=== PATIENT | male | born 1970 | race Two or more races ===

== ENCOUNTER 2024-04-14 08:20 | Day surgery (SDC) | payer MEDICARE, MEDICAID, SELFPAY ==
[2024-04-13 12:05] VITALS: BMI 30.7
[2024-04-14] VITALS (7 sets, daily range): BP systolic 109–126; BP diastolic 66–71; PULSE 60–91; RESP 12–18; TEMP 36.3–36.5; O2SAT 96–100; BMI 30.9
[2024-04-14] MEDS: SODIUM CHLORIDE 0.9% 500 ML 500 ML 20 ML IV (10:20)
[2024-04-14] MEDS: DiphenhydrAMINE INJ 50 MG/ML VIAL 25 MG IV (10:21)
[2024-04-14] MEDS: fentaNYL CIT INJ 50 mCg/ML AMP 2ML (ASD USE ONLY) IV (10:22)
[2024-04-14] MEDS: MIDAZOLAM INJ 1 MG/ML VIAL 2 ML (ASD USE ONLY) 2 MG IV (10:23)
[2024-04-14] MEDS: ONDANSETRON INJ 2 MG/ML INJ 2 ML 4 MG IV (10:27)
== END 2024-04-14 11:25 | disposition home or self-care (01) ==
PROVIDERS: PCP Family Medicine; Referring Provider Specialist; Visit Provider Specialist
PROC: (CPT 43239; principal; 2024-04-14 09:30)
DX: I85.01 Esophageal varices with bleeding (principal); K74.60 Unspecified cirrhosis of liver; K29.71 Gastritis, unspecified, with bleeding
CPT/HCPCS: 43235; J1200; J2250; J2405; J3010; J7040

== ENCOUNTER 2024-04-20 05:05 | Emergency (ER) | payer MEDICARE, MEDICAID, SELFPAY ==
[2024-04-20 05:06] VITALS: BMI 30.6
[2024-04-20 05:13] VITALS: BP 110/71; PULSE 70; RESP 18; TEMP 36.8; O2SAT 98
--- NOTE | 2024-04-20 05:21 | XR_ITS ---
Examination: Abdomen sonogram, complete Date and time of exam: April 20, 2024 0742 hours INDICATIONS: Right upper abdominal pain beginning 4 days ago, cholecystectomy 1 year ago. Technique: Multiple real-time grayscale transabdominal sonographic images of the abdomen have been obtained. Findings: Absent gallbladder Common bile duct 0.4 cm Pancreas aorta obscured by bowel gas Liver 12.3 cm nodular contour no focal liver lesions Normal hepatopedal portal venous flow Patent IVC Right kidney 7.6 x 6.1 x 6.2 cm renal cortex 1.8 cm Mild right hydronephrosis Left kidney 11.0 x 5.6 x 4.8 cm in the cortex 1.7 cm Moderate bilateral renal parenchymal scar formation Splenomegaly 19.7 cm IMPRESSION: Cirrhosis Prominent splenomegaly Mild right hydronephrosis Moderate bilateral renal parenchymal scar formation
--- NOTE | 2024-04-20 05:22 | PD.EDRME ---
Rapid Medical Screening Exam RME Arrival date/time: 04/20/24 05:05 54-year-old male past medical history of cholecystectomy and liver cirrhosis presents emergency department complaining of abdominal pain and bruising. Chief Complaint: Abdominal Pain Vital signs: Vital Signs Temperature 98.3 F 04/20/24 05:13 Pulse Rate 70 04/20/24 05:13 Respiratory Rate 18 04/20/24 05:13 Blood Pressure 110/71 04/20/24 05:13 Pulse Oximetry (%) 98 04/20/24 05:13 Vital signs reviewed by provider: Yes
[2024-04-20 06:03] LABS: Basophils % (Auto) 0 % (0-2.5); Eosinophils # (Auto) 0.2 Thou/mm3 (0.0-0.5); Eosinophils % (Auto) 3 % (0-10); Hematocrit 30.1 % (41.0-53.0); Hemoglobin 10.5 g/dL (13.5-16.0); Immature Granulocytes % (Auto) 0 % (0-0); Immature Granulocytes Auto 0.02 Thou/mm3 (0.00-0.00); Lymphocytes # (Auto) 0.6 Thou/mm3 (1.0-4.8); Lymphocytes % (Auto) 13 % (10-50); Mean Corpuscular HGB Conc 34.9 g/dl (31.0-37.0); Mean Corpuscular Hemoglobin 29.9 pg (25.0-35.0); Mean Corpuscular Volume 86 fL (80-100); Monocytes # (Auto) 0.6 Thou/mm3 (0.0-0.8); Monocytes % (Auto) 12 % (0-12); Neutrophils # (Auto) 3.3 Thou/mm3 (1.8-7.7); Neutrophils % (Auto) 71 % (37-80); Nucleated Red Blood Cell % 0 /100 WBC (0); RDW Standard Deviation 46.6 fL (35.1-43.9); Red Blood Count 3.51 Miln/mm3 (4.50-5.90); White Blood Count 4.6 Thou/mm3 (3.8-10.6)
[2024-04-20 06:16] LABS: Platelet Count 35 Thou/mm3 (140-440)
[2024-04-20 06:23] LABS: Slide Review Platelets confirmed
[2024-04-20 06:24] LABS: INR 1.2 (0.9-1.3); Partial Thromboplastin Time 34.4 Seconds (22.0-36.0); Prothrombin Time 13.1 Seconds (9.0-12.2)
[2024-04-20 06:29] LABS: Alanine Aminotransferase 26 U/L (10-49); Albumin, Serum 3.4 gm/dL (3.5-5.0); Albumin/Globulin Ratio 0.9 (1.2-2.2); Alkaline Phosphatase 87 U/L (46-116); Anion Gap 6 (7-16); Aspartate Amino Transferase 29 U/L (0-34); BUN/Creatinine Ratio 21 Ratio (12-20); Bilirubin,Total 1.8 mg/dL (0.3-1.2); Blood Urea Nitrogen 23 mg/dL (9-23); Calcium 8.8 mg/dL (8.3-10.6); Calcium (Corrected) 9.3 mg/dL (8.5-10.1); Chloride 104 mMol/L (98-107); Creatinine (Component) 1.1 mg/dL (0.6-1.3); Estimated Creatinine Clearance 78.1 mL/min (>60); Globulin 3.7 gm/dL (2.3-3.5); Glucose 106 mg/dL (74-106); Lipase 43 U/L (12-53); Osmolality,Calculated 275 (275-295); Potassium 4.6 mMol/L (3.4-5.1); Sodium 136 mMol/L (136-145); Total Protein 7.1 gm/dL (5.7-8.2); eGFR > 60 See Note
[2024-04-20 06:45] LABS: Collection Type, Urine Clean Catch; Squamous Epithelial Cell,Urine 0 /hpf (0-5)
--- NOTE | 2024-04-20 06:51 | XR_ITS ---
Examination: CT abdomen with intravenous contrast CT pelvis with intravenous contrast 2-D coronal reconstructions 2-D sagittal reconstructions Date and time of exam:April 20, 2024 1050 hours Comparison May 26, 2023 INDICATIONS: Abdominal pain today, severe abdominal pain and bruising. CTDI: vol (mGy) 11.6 DLP: (mGycm) 772 Technique: Multiple axial sections of the abdomen and pelvis have been obtained. 64 slice high-resolution scanner used. 3 mm axial sections have been obtained, post intravenous injection 60 cc [id number] 2-D sagittal, coronal reconstructions obtained. Low dose protocols were performed. One or more of the following dose reduction techniques were used; automated exposure control, adjustment of the mA and/or KV according to patient size, use of iterative reconstruction technique. Findings: Atelectasis versus mild pneumonia left base Cirrhosis, liver nodular in contour Marked thickening of the gastric mucosa. Mild ascites Left upper abdomen 15 mm calcification which may be adrenal Significant splenomegaly No pancreatic mass Absent gallbladder Mild right hydronephrosis, no ureteral calculi No bowel obstruction Bladder intact. No prostatomegaly Moderate degenerative disc disease L5-S1 IMPRESSION: Atelectasis versus mild pneumonia left base, recommend PA lateral chest follow-up Cirrhosis Gastritis pattern Significant splenomegaly Mild ascites Mild right hydronephrosis, no ureteral calculi
[2024-04-20 06:53] VITALS: BP 100/66; PULSE 72; RESP 16; TEMP 36.8; O2SAT 99
[2024-04-20 07:08] LABS: Bilirubin,Urine Negative (Negative); Blood,Urine Negative (Negative); Clarity,Urine Clear (Clear/Hazy); Color,Urine Yellow (Lt Yel-Yel); Culture Indicated,Urine Not Indicated; Glucose, Urine Negative (Negative); Hyaline Casts,Urine < 1 /hpf (0-1); Ketones,Urine Negative (Negative); Leukocyte Esterase,Urine Negative (Negative); Nitrite,Urine Negative (Negative); Protein,Urine Negative (Neg - Trace); RBC,Urine 1 /hpf (0-3); Specific Gravity,Urine 1.016 (1.001-1.035); Urobilinogen,Urine Negative mg/dL (0.0-1.0); WBC,Urine 1 /hpf (0-5)
--- NOTE | 2024-04-20 07:27 | PD.EDABDPN ---
ED Abdominal Pain RME/HPI General Chief Complaint: Abdominal Pain Stated complaint: ABD PAIN/ LOW PLATELETS 38 Time seen by provider: 04/20/24 06:14 Arrival date/time: 04/20/24 05:05 RME / HPI RME / HPI narrative: 04/20/24 05:05 54-year-old male past medical history of cholecystectomy and liver cirrhosis presents emergency department complaining of abdominal pain and bruising. DR. GRIGGS MAIN ED EVALUATION: This section includes all my notes and documentations, including HPI, PE, and ED course.? Ketan Griggs MD HPI: 54 year old male with past medical history significant for chronic cirrhosis, ascites, diabetes, and cholecystectomy presents to the Emergency Department with complaint of diffuse abdominal pain for several days. Pain is described as aching and rated moderate in severity. No nausea or vomiting. Eating normally. No fever or chills. No urinary symptoms. No other complaints reported. ROS: All negative except as documented in HPI. Physical Exam: General:? Alert and oriented.? No acute distress when remaining still.? Eyes:? Conjunctivae and lids clear. ENT:? No nasal congestion.? ? Neck:? Supple. Heart:? RRR. Lungs:? No respiratory distress.? Good air movement.? No rhonchi, wheezing, rales.? Abdomen: Soft with epigastric tenderness. Normal BS. No distention. No rebound or guarding. Legs:? No clubbing, cyanosis, edema. Skin:? Warm and dry.? Neuro:? Alert and oriented X 3.? I reviewed all diagnostic test results. My interpretation of the abdomen ultrasound is no acute findings. My review of the abdominal CT report is no acute findings. Blood tests and urine tests unremarkable. At this point, diagnoses include gastritis. Treatment here included morphine, zofran. Prescribed omeprazole and famotidine and recommended more outpatient workup. Based on my best medical judgment, made decision no further evaluation or treatment indicated at this time.? Patient understands and agrees to the discharge instructions customized and printed, see below. Discharge instructions from Dr. Griggs: ?After evaluation, your symptoms are due to stomach ulcer (see attached handout).? There is no emergency such as appendicitis needing emergent surgery. ?To help heal the ulcer, take Omeprazole 40 mg every morning and Famotidine 40 mg at bedtime for a month. ?Zofran for nausea/vomiting.? Clear liquid diet for 24 hours.? Then slowly advance diet as tolerated. ?Avoid food and beverages that can trigger and worsen ulcers.? See attached handout. ?See a private doctor on 04/22/2024 for recheck and further care. Ask to review all test results and official radiology reports, to make sure you receive all necessary follow-ups and monitoring, including possible cirrhosis (liver damage, probably from alcohol history). Ask to help you get more care not available here in the ER.? Such as EGD or scoping the stomach, colonoscopy or scoping the colon, and a referral to see a dirt bike mechanic. ?Seek immediate medical care with worsening or with any concerns. Ketan Griggs MD Related Data Home Medications ?Medication ?Instructions ?Recorded ?Confirmed pantoprazole 40 mg tablet,delayed 40 mg PO QDAY 06/05/20 04/14/24 release furosemide 40 mg tablet 80 mg PO BID 11/12/22 04/14/24 ursodiol 500 mg tablet 500 mg PO BID 04/03/23 04/14/24 apixaban 2.5 mg tablet (Eliquis) 2.5 mg PO QDAY 04/14/24 04/14/24 ciprofloxacin HCl 500 mg tablet 500 mg PO Q24H 04/14/24 04/14/24 ergocalciferol (vitamin D2) 1,250 1,250 mcg PO QWEEK 04/14/24 04/14/24 mcg (50,000 unit) capsule multivit,calcium,min-folic acid 1 tab PO QDAY 04/14/24 04/14/24 240 mcg-D3 25 mcg-lycop 300 mcg tablet (One A Day Men Complete) semaglutide 3 mg tablet (Rybelsus) 3 mg PO QDAY 04/14/24 04/14/24 sucralfate 1 gram tablet 1 g PO BID 04/14/24 04/14/24 Previous Rx's ?Medication ?Instructions ?Recorded lactulose 20 gram/30 mL oral 20 g (30 mL) PO TID #1,200 mL 05/28/23 solution rifaximin 550 mg tablet (Xifaxan) 550 mg PO BID #60 tabs 05/28/23 spironolactone 25 mg tablet 50 mg (2 x 25 mg) PO BID #60 tabs 05/28/23 famotidine 40 mg tablet 40 mg PO .bedtime #30 tabs 04/20/24 omeprazole 40 mg capsule,delayed 40 mg PO QDAY #30 caps 04/20/24 release ondansetron 4 mg disintegrating 4 mg PO TID PRN nausea and 04/20/24 tablet vomiting 30 days #10 tabs Allergies Allergy/AdvReac Type Severity Reaction Status Date / Time No Known Allergies Allergy Verified 04/14/24 08:38 Course Quality Measures none Orders Category Date Time Status CT Screening NOW Care 04/20/24 06:51 Completed Saline [Insert IV] NOW Care 04/20/24 06:51 Completed Straight [In and Out Catheter] X1 Care 04/20/24 06:[address] abdomen pelvis w con Stat Exams 04/20/24 06:51 Completed US abdomen Stat Exams 04/20/24 05:21 Completed Amylase Stat Lab 04/20/24 05:57 Completed CBC Stat Lab 04/20/24 05:57 Completed CMP [Comprehensive Metabolic Panel] Stat Lab 04/20/24 05:57 Completed Lipase Stat Lab 04/20/24 05:57 Completed Magnesium Stat Lab 04/20/24 05:57 Completed PT [Prothrombin Time with INR] Stat Lab 04/20/24 05:57 Completed PTT [Partial Thromboplastin Time] Stat Lab 04/20/24 05:57 Completed Path Review Blood Smear Stat Lab 04/20/24 05:57 Completed Urinalysis, C/S if Indicated Stat Lab 04/20/24 06:36 Completed Morphine Inj Med 04/20/24 06:51 Discontinued 4 mg IVP X1 ONE Ondansetron Inj [Zofran Inj] Med 04/20/24 06:51 Discontinued 4 mg IV X1 ONE Vital Signs Vital signs: Vital Signs Temperature 98.3 F 04/20/24 05:13 Pulse Rate 70 04/20/24 05:13 Respiratory Rate 18 04/20/24 05:13 Blood Pressure 110/71 04/20/24 05:13 Pulse Oximetry (%) 98 04/20/24 05:13 Abdominal Pain MDM MDM Narrative MDM Narrative:: IFanny am scribing for and in the presence of Dr. Griggs. Patient data External records reviewed:: [facility] previous records (Reviewed operative note by Dr. Lim dated 04/14/24.) Clinical information provided by:: patient Social determinants that could affect healthcare access:: none Patient has the following chronic illnesses:: chronic cirrhosis, ascites, diabetes, and a cholecystectomy How is presenting disease/condition affected by chronic disease/condition?: exacerbated by Evaluation data The following diagnostics were reviewed and interpreted by me:: lab results and radiology exam(s) Lab and/or radiology exams considered but not ordered:: none Interpretation Summary: stomach ulcer Medications / Prescriptions Medications or Prescriptions considered but not ordered:: none Medication administrations:: Medication Administration History Discontinued Medications Morphine Sulfate (Morphine Sulf Inj 10 Mg/Ml Vial) 4 mg IVP X1 ONE Stop: 04/20/24 06:52 Last Admin: 04/20/24 07:33 Dose: 4 mg Documented By: ALISHA Ondansetron HCl (Ondansetron Inj 2 Mg/Ml Inj 2 Ml) 4 mg IV X1 ONE; Protocol Stop: 04/20/24 06:52 Last Admin: 04/20/24 07:33 Dose: 4 mg Documented By: anahi Isaacfran Consultations Consultation(s) initiated? (list below): No Diagnosis Differential diagnosis abdominal pain: acute appendicitis, calculus of kidney, constipation, diverticulitis, pancreatitis and small bowel obstruction Most likely diagnosis given after review of the tests above:: stomach ulcer Admission Indicated Admission indicated?: not indicated Explain why admission is indicated or not indicated:: There was no indication for admission. Admission Request Was there a request for admission?: No Disposition Plan Disposition Plan: Discharge Discharge Attestation Discharge Attestation: The patient and all family members were given an opportunity to ask questions and understood the discharge instructions. Discharge instructions specifically effects, indications for sooner follow up or return to the emergency department, and the expected course of current diagnosis. Patient condition: Stable Discharge Plan Plan Patient Disposition: HOME (Self Care) Patient condition on transfer: Stable Prescriptions/Referrals Prescriptions/Med Rec: New famotidine 40 mg tablet 40 mg PO .bedtime Qty: 30 0RF omeprazole 40 mg capsule,delayed release(DR/EC) 40 mg PO QDAY Qty: 30 0RF ondansetron 4 mg tablet,disintegrating 4 mg PO TID PRN (Reason: nausea and vomiting) 30 Days Qty: 10 0RF No Action pantoprazole 40 mg tablet,delayed release (DR/EC) 40 mg PO QDAY furosemide 40 mg tablet 80 mg PO BID Patient Comments: TAKE 1 TABLET BY MOUTH EVERY DAY ursodiol 500 mg Tablet 500 mg PO BID spironolactone 25 mg Tablet 50 mg PO BID Qty: 60 3RF Xifaxan 550 mg Tablet 550 mg PO BID Qty: 60 3RF lactulose 20 gram/30 mL solution 20 g PO TID Qty: 1200 3RF One A Day Men Complete 240-25-300 mcg tablet 1 tab PO QDAY sucralfate 1 gram tablet 1 g PO BID Patient Comments: TAKE 1 TABLET BY MOUTH TWICE A DAY BEFORE MEALS ergocalciferol (vitamin D2) 1,250 mcg (50,000 unit) capsule 1,250 mcg PO QWEEK Patient Comments: TAKE 1 CAPSULE BY MOUTH ONCE PER WEEK Eliquis 2.5 mg tablet 2.5 mg PO QDAY Patient Comments: TAKE 1 TABLET BY MOUTH TWO TIMES DAILY. Rybelsus 3 mg tablet 3 mg PO QDAY Patient Comments: TAKE 1 TABLET BY MOUTH EVERY DAY ciprofloxacin HCl 500 mg tablet 500 mg PO Q24H Patient Comments: TAKE 1 TABLET (500 MG TOTAL) BY MOUTH DAILY. Referrals: Jarred Toure MD [Primary Care Provider] - In 1 week Problem List Clinical Impression: Stomach ulcer Patient/Caregiver Discharge Instructions Discharge Activity: activity as tolerated Education Materials: ED PEPTIC ULCER vs GASTRITIS Additional Instructions: Discharge instructions from Dr. Griggs: ?After evaluation, your symptoms are due to stomach ulcer (see attached handout).? There is no emergency such as appendicitis needing emergent surgery. ?To help heal the ulcer, take Omeprazole 40 mg every morning and Famotidine 40 mg at bedtime for a month. ?Zofran for nausea/vomiting.? Clear liquid diet for 24 hours.? Then slowly advance diet as tolerated. ?Avoid food and beverages that can trigger and worsen ulcers.? See attached handout. ?See a private doctor on 04/22/2024 for recheck and further care. Ask to review all test results and official radiology reports, to make sure you receive all necessary follow-ups and monitoring, including possible cirrhosis (liver damage, probably from alcohol history). Ask to help you get more care not available here in the ER.? Such as EGD or scoping the stomach, colonoscopy or scoping the colon, and a referral to see a dirt bike mechanic. ?Seek immediate medical care with worsening or with any concerns. Instrucciones de kathya del Dr. Griggs: ?Despu?s de la evaluaci?n, nyasia s?ntomas se deben a dale ?lcera de est?vince (jason el folleto adjunto). No hay ninguna emergencia gladys apendicitis que requiera cirug?a de emergencia. ?Para ayudar a curar la ?lcera, tome omeprazol 40 mg todas las ma?anas y famotidina 40 mg antes de acostarse roly un mes. ?Zofran para las n?useas/v?mitos. Dieta de l?quidos ricardo roly 24 horas. Luego, avance lentamente con la dieta seg?n la tolerancia. ?Evite los alimentos y bebidas que puedan desencadenar y empeorar las ?lceras. Jason el folleto adjunto. ?Visite a un m?dico privado el 04/22/2024 para volver a controlarlo y recibir m?s atenci?n. Solicite revisar todos los resultados de las pruebas y los informes oficiales de radiolog?a, para asegurarse de que reciba todos los seguimientos y monitoreo necesarios, incluida la posible cirrosis (da?o hep?fabiola, probablemente por antecedentes de alcohol). Solicite ayuda para obtener m?s atenci?n que no est? disponible aqu? en la joyce de emergencias. [place] dale endoscopia g?strica o endoscopia, dale colonoscopia o endoscopia de colon y dale derivaci?n para jason a un gastroenter?logo. ?Busque atenci?n m?dica inmediata si la enfermedad empeora o tiene alguna inquietud. Print Language: Slovenian Stand Alone Forms: [facility] Info., Patient Portal Info Letter
[2024-04-20] MEDS: ONDANSETRON INJ 2 MG/ML INJ 2 ML 4 MG IV (07:33)
[2024-04-20] MEDS: MORPHINE SULF INJ 10 MG/ML VIAL 4 MG IVP (07:33)
[2024-04-20 07:34] LABS: Amylase 72 U/L (30-118); Magnesium 2.1 mg/dL (1.6-2.6)
[2024-04-20 08:51] VITALS: BP 112/69; PULSE 67; RESP 16; TEMP 36.6; O2SAT 98
[2024-04-20 10:25] LABS: Path Review Blood Smear Sent to Pathologist
[2024-04-20 13:00] VITALS: BP 102/58; PULSE 65; RESP 18; TEMP 36.6; O2SAT 99
== END 2024-04-20 13:24 | disposition home or self-care (01) ==
PROVIDERS: Emergency Provider Emergency Medicine; PCP Family Medicine
DX: K25.9 Gastric ulcer, unspecified as acute or chronic, without hemorrhage or perforation (principal)
CPT/HCPCS: 36415; 74177; 76700; 80053; 81001; 82150; 83690; 83735; 85025; 85610; 85730; 96374; 96375; 99285; A4649; J2270; J2405; Q9967

== ENCOUNTER 2024-08-28 22:00 | Emergency (ER) | payer MEDICARE, MEDICAID, SELFPAY ==
[2024-08-28 22:40] VITALS: BP 99/65; PULSE 67; RESP 18; TEMP 36.8; O2SAT 99
--- NOTE | 2024-08-28 23:26 | PD.EDWOUND ---
ED Wound/Laceration-RME/HPI General Chief Complaint: Wound Recheck / Suture Removal Stated Complaint: INCISION BLEEDING Time Seen by Provider: 08/28/24 23:00 Arrival date/time: 08/28/24 22:00 RME / HPI RME / HPI narrative: DR. MARADIAGA MAIN ED EVALUATION: 54 y/o male with Hx of presents to ED c/o heavy bleeding from a procedure incision site x just [employer]. Patient underwent procedure on 08/03/[address] Griggs at [facility]. Related Data Home Medications ?Medication ?Instructions ?Recorded ?Confirmed pantoprazole 40 mg tablet,delayed 40 mg PO QDAY 06/05/20 04/14/24 release furosemide 40 mg tablet 80 mg PO BID 11/12/22 04/14/24 ursodiol 500 mg tablet 500 mg PO BID 04/03/23 04/14/24 apixaban 2.5 mg tablet (Eliquis) 2.5 mg PO QDAY 04/14/24 04/14/24 ciprofloxacin HCl 500 mg tablet 500 mg PO Q24H 04/14/24 04/14/24 ergocalciferol (vitamin D2) 1,250 1,250 mcg PO QWEEK 04/14/24 04/14/24 mcg (50,000 unit) capsule multivit,calcium,min-folic acid 1 tab PO QDAY 04/14/24 04/14/24 240 mcg-D3 25 mcg-lycop 300 mcg tablet (One A Day Men Complete) semaglutide 3 mg tablet (Rybelsus) 3 mg PO QDAY 04/14/24 04/14/24 sucralfate 1 gram tablet 1 g PO BID 04/14/24 04/14/24 Previous Rx's ?Medication ?Instructions ?Recorded lactulose 20 gram/30 mL oral 20 g (30 mL) PO TID #1,200 mL 05/28/23 solution rifaximin 550 mg tablet (Xifaxan) 550 mg PO BID #60 tabs 05/28/23 spironolactone 25 mg tablet 50 mg (2 x 25 mg) PO BID #60 tabs 05/28/23 famotidine 40 mg tablet 40 mg PO .bedtime #30 tabs 04/20/24 omeprazole 40 mg capsule,delayed 40 mg PO QDAY #30 caps 04/20/24 release Allergies Allergy/AdvReac Type Severity Reaction Status Date / Time No Known Allergies Allergy Verified 08/28/24 22:02 Review of Systems Review of Systems Systems Reviewed: All systems reviewed, normal except as documented Past Medical History Past Medical History CARDIAC: Positive Hypercholesterolemia, Hypertension and Hypotension GASTROINTESTINAL: Positive Gastrointestinal Disorders, Hepatitis, Cirrhosis, Pancreatitis, Gall Bladder Disease, Gastrointestinal Bleed, Esophageal Varices, Ulcer and Obesity MUSCULOSKELETAL: Positive Musculoskeletal Disorders and Arthritis ENT: Positive Glaucoma ENDOCRINE: Positive Endocrine Disorders and Diabetes Mellitus Type 2 HEMATOLOGIC: Positive Blood Disorders and Anemia PSYCHO/SOCIAL: Positive Depression and Anxiety OTHER HISTORY: Positive Hospitalization, Autoimmune Disease, Blood Transfusions and Measles Family History FAMILY HISTORY: Positive Family Cancer ED Exam Narrative Physical exam: GENERAL APPEARANCE: alert and oriented x 4, well-developed, well-nourished, no acute distress VITALS: All vitals were reviewed and the pulse ox is 99% on room air, which is normal according to my interpretation. HEENT: Normocephalic, atraumatic; pupils equal, round, reactive to light; EOMI; mucous membranes pink, moist; oropharynx clear NECK: Supple LUNGS: CTABL; no wheezes, no rales, no rhonchi HEART: Regular rate, regular rhythm; normal S1, S2; no murmurs ABDOMEN: non distended; normal BS; soft, no tenderness, no guarding, no rebound; no masses, no organomegaly, no hernia BACK: no CVA tenderness EXTREMITIES: atraumatic; no edema NEUROLOGIC: awake; alert and oriented x4; cranial nerves II-XII grossly intact; no focal sensory or motor deficits PSYCHIATRIC: appropriate mood and affect SKIN: warm, dry, normal color; no rashes; 2 mm skin opening on the right side of neck with minimal dark blood expressed Course Quality Measures none Vital Signs Vital signs: Vital Signs Temperature 98.3 F 08/28/24 22:40 Pulse Rate 67 08/28/24 22:40 Respiratory Rate 18 08/28/24 22:40 Blood Pressure 99/65 08/28/24 22:40 Pulse Oximetry (%) 99 08/28/24 22:40 Oxygen Delivery Method Room Air 08/28/24 22:40 Wound / Laceration MDM Narrative MDM Narrative:: Scribe Attestation: Ayla Hoffmann, mark scribing for and in the presence of Dr. Maradiaga. Provider Notation: Although this document has been carefully reviewed, there may still be some phonetic and other typographical errors.? These errors are purely grammatical due to imperfections in the software program and should not be construed in any way to? compromise the substance of the patient's medical care during this visit. Patient data External records reviewed:: [facility] previous records (Reviewed prior ED records from 04/20/24. Patient was seen for Stomach ulcer.) Clinical information provided by:: patient Social determinants that could affect healthcare access:: none Patient has the following chronic illnesses:: Hypercholesterolemia, Hypertension, Hypotension, Hepatitis, Cirrhosis, Pancreatitis, Gall Bladder Disease, Gastrointestinal Bleed, Esophageal Varices, Ulcer, Obesity, Arthritis, Glaucoma, Diabetes Mellitus Type 2, Anemia, Depression and Anxiety How is presenting disease/condition affected by chronic disease/condition?: exacerbated by Evaluation data The following diagnostics were reviewed and interpreted by me:: other (specify) (N/A) Lab and/or radiology exams considered but not ordered:: None Interpretation Summary: N/A Medications / Prescriptions Medications or Prescriptions considered but not ordered:: None Medication administrations:: N/A Consultations Consultation(s) initiated? (list below): No Diagnosis Wound Differential Diagnosis: laceration, abscess, abrasion, avulsion of skin and other (cellulitis) Most likely diagnosis given after review of the tests above:: Bleeding from wound, Visit for wound check Admission Indicated Admission indicated?: not indicated Explain why admission is indicated or not indicated:: Patient does not meet admission criteria. Admission Request Was there a request for admission?: No Disposition Plan Disposition Plan: Discharge Discharge Attestation Discharge Attestation: The patient and all family members were given an opportunity to ask questions and understood the discharge instructions. Discharge instructions specifically effects, indications for sooner follow up or return to the emergency department, and the expected course of current diagnosis. Patient condition: Stable Discharge Plan Plan Patient Disposition: HOME (Self Care) Prescriptions/Referrals Prescriptions/Med Rec: No Action pantoprazole 40 mg tablet,delayed release (DR/EC) 40 mg PO QDAY furosemide 40 mg tablet 80 mg PO BID Patient Comments: TAKE 1 TABLET BY MOUTH EVERY DAY ursodiol 500 mg Tablet 500 mg PO BID spironolactone 25 mg Tablet 50 mg PO BID Qty: 60 3RF Xifaxan 550 mg Tablet 550 mg PO BID Qty: 60 3RF lactulose 20 gram/30 mL solution 20 g PO TID Qty: 1200 3RF One A Day Men Complete 240-25-300 mcg tablet 1 tab PO QDAY sucralfate 1 gram tablet 1 g PO BID Patient Comments: TAKE 1 TABLET BY MOUTH TWICE A DAY BEFORE MEALS ergocalciferol (vitamin D2) 1,250 mcg (50,000 unit) capsule 1,250 mcg PO QWEEK Patient Comments: TAKE 1 CAPSULE BY MOUTH ONCE PER WEEK Eliquis 2.5 mg tablet 2.5 mg PO QDAY Patient Comments: TAKE 1 TABLET BY MOUTH TWO TIMES DAILY. Rybelsus 3 mg tablet 3 mg PO QDAY Patient Comments: TAKE 1 TABLET BY MOUTH EVERY DAY ciprofloxacin HCl 500 mg tablet 500 mg PO Q24H Patient Comments: TAKE 1 TABLET (500 MG TOTAL) BY MOUTH DAILY. famotidine 40 mg tablet 40 mg PO .bedtime Qty: 30 0RF omeprazole 40 mg capsule,delayed release(DR/EC) 40 mg PO QDAY Qty: 30 0RF Problem List Clinical Impression: Bleeding from wound, Visit for wound check Patient/Caregiver Discharge Instructions Education Materials: ED Wound Care Print Language: Italian Stand Alone Forms: [employer] [employer] Info., Patient Portal Info Letter
== END 2024-08-28 23:47 | disposition home or self-care (01) ==
LOC: SERX 08-29 00:08
PROVIDERS: Emergency Provider Emergency Medicine
DX: L76.22 Postprocedural hemorrhage of skin and subcutaneous tissue following other procedure (principal); Y83.9 Surgical procedure, unspecified as the cause of abnormal reaction of the patient, or of later complication, without mention of misadventure at the time of the procedure
CPT/HCPCS: 99283